=== PATIENT | female | born 1975 | race Two or more races ===

== ENCOUNTER 2017-01-29 18:06 | Emergency (ER) | payer MEDICAID ==
[~2017-01-29] VITALS: Ht 162.6 cm; Wt 72.6 kg
[2017-01-29 18:06] VITALS: BP 135/86
[2017-01-29 19:05] LABS: CANNABINOID, URINE NEGATIVE (NEGATIVE); PHENCYCLIDINE SCREEN,URINE NEGATIVE (NEGATIVE)
== END 2017-01-29 19:18 | disposition home or self-care (01) ==
LOC: ER 18:07
DX: Z00.8 Encounter for other general examination (principal); Z88.0 Allergy status to penicillin
CPT/HCPCS: 36415; 80305; 99284; A4606; G0480; Z7610